=== PATIENT | male | born 1975 | race Caucasian/White ===

== ENCOUNTER 2017-08-16 17:15 | Emergency (ER) | payer OTHER ==
[~2017-08-16] VITALS: Ht 180.3 cm; Wt 95.2 kg
[~2017-08-16 17:15] MED LIST: AMOCLA875 PO; AMOX500 PO; BACL10 PO; CEPH500 PO; CLIN150 PO; CYCL10 PO; DIAZ5 PO; FAMO20 PO; Flexi Joint Ta1 EAC1 PO; GABA100 PO; GABA300 PO; HYDACE5 PO; HYDACE5325 PO; IBUP600 PO; IBUP800 PO; KETO10 PO; LEVO750 PO; MELO7.5 PO; META800 PO; Mobic7.5 MG PO; NAPR500 PO; NAPR550 PO; Norco 10-325 T1 EACH PO; Norco 5-325 Ta1 EACH PO; OXYACE5T PO; PENVK500 PO; PROM25; PROM25 PO; Pepcid40 MG PO; Percocet 5-3251 EACH PO; Prednisone20 MG PO; SUCR1 PO; SULTRIDS; SULTRIDS PO; Ultram50 MG PO; VICODIN 5-3001 EACH PO; Zofran8 MG PO
[2017-08-16] MEDS ORDERED: MELO7.5 PO (17:31)
[2017-08-16] MEDS ORDERED: GABA300 PO (17:31)
[2017-08-16 18:06] LABS: Source, Urine Clean Catch
[2017-08-16 18:23] LABS: Appearance, Urine Cloudy (Clear); Bilirubin, Urine Neg (Neg); Blood, Urine 5+ (Neg); Color, Urine Amber (P-Yellow); Glucose Qualitative, Urine Neg (Neg); Ketones, Urine 1+ (Neg); Leukocyte Esterase, Urine 1+ (Neg); Nitrite, Urine Neg (Neg); Protein, Urine 2+ (Neg); Specific Gravity, Urine 1.015 (1.003-1.022); Urobilinogen, Urine 1+ (Normal)
[2017-08-16 19:04] LABS: Red Blood Cells, Urine TNTC /hpf (0-2); Squamous Epithelial Cells Not Seen /hpf (Few)
[2017-08-16 19:05] LABS: Bacteria Few /hpf
[2017-08-16 19:56] LABS: BASOPHILS ABSOLUTE AUTO 0.03 K/mm3 (0.00-0.23); BASOPHILS PERCENT AUTO 0 % (0-2); EOSINOPHILS ABSOLUTE AUTO 0.36 K/mm3 (0.00-0.68); EOSINOPHILS PERCENT AUTO 4 % (0-6); Hematocrit 42.5 % (37.0-53.0); Hemoglobin 14.2 g/dL (13.5-17.5); IMMATURE GRAN ABSOLUTE AUTO 0.02 K/mm3 (0.00-0.10); IMMATURE GRAN PERCENT AUTO 0 % (0-1); LYMPHOCYTES ABSOLUTE AUTO 2.95 K/mm3 (0.84-5.20); LYMPHOCYTES PERCENT AUTO 31 % (21-46); MONOCYTES ABSOLUTE AUTO 0.92 K/mm3 (0.16-1.47); MONOCYTES PERCENT AUTO 10 % (4-13); Mean Corpuscular HGB 30.8 pg (26.0-34.0); Mean Corpuscular HGB Conc 33.4 g/dL (31.5-36.5); Mean Corpuscular Volume 92 fL (80-100); Mean Platelet Volume 9.5 fL (9.1-12.4); NEUTROPHILS ABSOLUTE AUTO 5.29 K/mm3 (1.96-9.15); NEUTROPHILS PERCENT AUTO 55 % (41-73); Platelet Count 222 K/mm3 (150-400); RDW Coefficient Variation 13.3 % (11.7-14.2); RDW Standard Deviation 45.3 fL (35.1-46.3); Red Blood Cell Count 4.61 M/mm3 (4.30-5.90); White Blood Cell Count 9.57 K/mm3 (4.00-11.30)
[2017-08-16 20:32] LABS: Alanine Aminotransfer (ALT/SGP 55 U/L (12-78); Albumin, Blood 3.9 g/dL (3.4-5.0); Albumin/Globulin Ratio 1.1 (0.8-1.8); Alk Phos 102 U/L (50-136); Anion Gap 6 mmol/L (6-16); Aspartate Aminotrans (AST/SGOT 52 U/L (12-37); Bilirubin, Total 0.7 mg/dL (0.1-1.0); Blood Urea Nitrogen 12 mg/dL (8-24); Bun/Creatinine Ratio 15.6 (12.0-20.0); CO2, Blood 27 mmol/L (21-32); Calcium, Blood 8.7 mg/dL (8.5-10.1); Chloride, Blood 105 mmol/L (98-108); Creatinine, Blood 0.77 mg/dL (0.60-1.20); Globulin, Blood 3.7 g/dL (2.2-4.0); Glomerular Filtration Rate >60 (60-); Glucose, Blood 90 mg/dL (70-99); Potassium, Blood 4.1 mmol/L (3.5-5.5); Sodium, Blood 138 mmol/L (136-145); Total Protein, Blood 7.6 g/dL (6.4-8.2)
[2017-08-16] MEDS ORDERED: Flomax0.4 MG PO (21:14)
[2017-08-16] MEDS ORDERED: Norco 5-325 Ta1 EACH PO (21:14)
[2017-08-16] MEDS ORDERED: IBUP600 PO (21:14)
[2018-05-11] MEDS ORDERED: CYCL10 PO (13:16)
== END 2017-08-16 21:36 | disposition home or self-care (01) ==
LOC: ER 17:15
PROVIDERS: Emergency Medicine
DX: N20.1 Calculus of ureter (principal); Z88.8 Allergy status to other drugs, medicaments and biological substances; E11.9 Type 2 diabetes mellitus without complications; F17.210 Nicotine dependence, cigarettes, uncomplicated
CPT/HCPCS: 36415; 74176; 76870; 80053; 81001; 85025; 87086; 96361; 96374; 96375; 99284; J1885; J2405; J7030

== ENCOUNTER 2018-02-23 09:25 | Day surgery (SDC) | payer OTHER ==
[~2018-02-23] VITALS: Ht 180.3 cm; Wt 101.0 kg
[~2018-02-23 09:25] MED LIST changes: +Flomax0.4 MG PO
[2018-02-23] MEDS ORDERED: ALBU90OI INH (10:15)
[2018-02-23] MEDS ORDERED: Advair Hfa 230-12 GM (10:15)
[2018-02-23] MEDS ORDERED: GABA300 PO (10:15)
[2018-02-23] MEDS ORDERED: PROM12.5S PR (10:16)
== END 2018-02-23 11:12 | disposition home or self-care (01) ==
LOC: ORSCSDS 09:25
PROVIDERS: Internal Medicine Gastroenterology
PROC: 0DJ08ZZ Inspection of Upper Intestinal Tract, Via Natural or Artificial Opening Endoscopic (ICD-10-PCS; principal; 2018-02-23 11:15)
DX: K21.0 Gastro-esophageal reflux disease with esophagitis (principal); K44.9 Diaphragmatic hernia without obstruction or gangrene; R11.2 Nausea with vomiting, unspecified; B19.20 Unspecified viral hepatitis C without hepatic coma; I10 Essential (primary) hypertension; F41.9 Anxiety disorder, unspecified; F17.210 Nicotine dependence, cigarettes, uncomplicated; Z79.899 Other long term (current) drug therapy
CPT/HCPCS: J7120

== ENCOUNTER 2018-07-27 14:33 | Observation (INO) | payer OTHER ==
[~2018-07-27] VITALS: Ht 180.3 cm; Wt 106.1 kg
[~2018-07-27 14:33] MED LIST changes: +ALBU90OI INH; +Advair Hfa 230-12 GM; +PROM12.5S PR
[2018-07-27 15:10] LABS: BASOPHILS ABSOLUTE AUTO 0.04 K/mm3 (0.00-0.23); BASOPHILS PERCENT AUTO 0 % (0-2); EOSINOPHILS ABSOLUTE AUTO 0.17 K/mm3 (0.00-0.68); EOSINOPHILS PERCENT AUTO 2 % (0-6); Hematocrit 47.6 % (37.0-53.0); Hemoglobin 16.2 g/dL (13.5-17.5); IMMATURE GRAN ABSOLUTE AUTO 0.03 K/mm3 (0.00-0.10); IMMATURE GRAN PERCENT AUTO 0 % (0-1); LYMPHOCYTES ABSOLUTE AUTO 3.19 K/mm3 (0.84-5.20); LYMPHOCYTES PERCENT AUTO 28 % (21-46); MONOCYTES ABSOLUTE AUTO 1.15 K/mm3 (0.16-1.47); MONOCYTES PERCENT AUTO 10 % (4-13); Mean Corpuscular HGB 29.9 pg (26.0-34.0); Mean Corpuscular Volume 88 fL (80-100); Mean Platelet Volume 10.2 fL (9.1-12.4); NEUTROPHILS ABSOLUTE AUTO 6.91 K/mm3 (1.96-9.15); NEUTROPHILS PERCENT AUTO 60 % (41-73); Platelet Count 254 K/mm3 (150-400); RDW Coefficient Variation 12.8 % (11.7-14.2); RDW Standard Deviation 41.2 fL (35.1-46.3); Red Blood Cell Count 5.41 M/mm3 (4.30-5.90); White Blood Cell Count 11.49 K/mm3 (4.00-11.30)
[2018-07-27] MEDS ORDERED: PROM25 PO (15:18)
[2018-07-27 15:33] LABS: Alanine Aminotransfer (ALT/SGP 185 U/L (12-78); Albumin, Blood 4.2 g/dL (3.4-5.0); Alk Phos 123 U/L (50-136); Anion Gap 8 mmol/L (6-16); Aspartate Aminotrans (AST/SGOT 72 U/L (12-37); Bilirubin, Total 0.4 mg/dL (0.1-1.0); Blood Urea Nitrogen 13 mg/dL (8-24); Bun/Creatinine Ratio 14.1 (12.0-20.0); CO2, Blood 27 mmol/L (21-32); Calcium, Blood 8.6 mg/dL (8.5-10.1); Chloride, Blood 103 mmol/L (98-108); Creatinine, Blood 0.92 mg/dL (0.60-1.20); Glomerular Filtration Rate >60 (60-); Glucose, Blood 89 mg/dL (70-99); Potassium, Blood 3.9 mmol/L (3.5-5.5); Sodium, Blood 138 mmol/L (136-145); Total Protein, Blood 8.2 g/dL (6.4-8.2); Troponin I <0.015 ng/mL (0.000-0.040)
--- NOTE | 2018-07-28 06:44 | NUR ---
VSS, AFEBRILE, A/O, INDEPENDENT, 20G R AC. PMHX: NON-COMPLIANCE, SMOKER, HTN, DM II. TELE: STACH, NEG TROPS, NEG EKG, ELEVATED LIVER ENZYMES, NEG PE STUDY. C/O BILAT SHOULDER PAIN, PREVIOUS METH/NARCOTIC ABUSE
[2018-07-28] MEDS ORDERED: ACET325 PO (15:11)
[2018-07-28] MEDS ORDERED: ALUM-MAG HYDRO360 ML PO (15:13)
[2018-07-28] MEDS ORDERED: ASPI81CH PO (15:14)
[2018-07-28] MEDS ORDERED: AMLO5 PO (15:14)
[2018-07-28] MEDS ORDERED: KETO10 PO (15:14)
[2018-07-28] MEDS ORDERED: Nicoderm Cq1 EAC1 TD (15:15)
[2018-07-28] MEDS ORDERED: OMEPRAZOLE MAGN20 MG PO (15:16)
[2018-07-28] MEDS ORDERED: ONDA4ODT MM (15:18)
--- NOTE | 2018-07-28 16:26 | NUR ---
PT DISCHARGED THE PT VERBALIZED UNDERSTANDING OF THE DC INSTRUCTIONS, PPERSCRIPTIONS FAXED TO [facility] REQUESTED, THE PT DECLINED WHEELCHAIR, THE PT WAS STEADY ON HIS FEET ACCOMPANIED BY A FRIEND, PT WAS A/OX3
== END 2018-07-28 15:28 | disposition home or self-care (01) ==
LOC: ER 14:33 → MEDS 14:34 → ENPENDDIS 07-28 14:02 → MEDS 07-28 15:28
PROVIDERS: Emergency Medicine; ADMIT Family Medicine
DX: R07.9 Chest pain, unspecified (principal); I16.0 Hypertensive urgency; K21.0 Gastro-esophageal reflux disease with esophagitis; M19.012 Primary osteoarthritis, left shoulder; M19.011 Primary osteoarthritis, right shoulder; E78.5 Hyperlipidemia, unspecified; E66.9 Obesity, unspecified; J44.9 Chronic obstructive pulmonary disease, unspecified; R74.0 Nonspecific elevation of levels of transaminase and lactic acid dehydrogenase [LDH]; I10 Essential (primary) hypertension; E11.40 Type 2 diabetes mellitus with diabetic neuropathy, unspecified; M19.90 Unspecified osteoarthritis, unspecified site; F17.210 Nicotine dependence, cigarettes, uncomplicated; Z79.899 Other long term (current) drug therapy; Z68.32 Body mass index [BMI] 32.0-32.9, adult
CPT/HCPCS: 36415; 71046; 71260; 80053; 83880; 84484; 85025; 85379; 90686; 93005; 93010; 93306; 94640; 94760; 96360; 96361; 96374; 99285-25; G0008; G0378; J1650; J1885; Q9967

== ENCOUNTER 2018-11-27 09:47 | Day surgery (SDC) | payer OTHER ==
[~2018-11-27] VITALS: Ht 180.3 cm; Wt 113.2 kg
[~2018-11-27 09:47] MED LIST changes: +ACET325 PO; +ALBU2.5V5 NEB; +ALUM-MAG HYDRO360 ML PO; +AMLO5 PO; +ASPI81CH PO; +BUPR150T2 PO; +FLUT1DIS5 INH; +GABA600 PO; +IBUP400 PO; +METAMUCIL POWD174 GM PO; +Nicoderm Cq1 EAC1 TD; +OMEPRAZOLE MAGN20 MG PO; +ONDA4ODT MM; +SACC250C PO; +Toprol Xl50 MG PO; +Toradol10 MG PO; +VARE1 PO; +Zantac150 MG PO
--- NOTE | 2018-11-27 14:52 | NUR ---
11/27/18 1452 Cassandra Farley PT STATED PAIN WAS TOLERABLE AND MELA PO SNACKS AND FLUIDS WELL TO CAR VIA W/C AND SBAX1 MELA WELL. PT AND HIS KRISTAL WERE SHOWN HOW TO REMOVE AND REPLACE SLING AND HOW TO USE POLAR PK AND I.S.
== END 2018-11-27 14:38 | disposition home or self-care (01) ==
LOC: ORSCSDS 09:47
PROVIDERS: Orthopaedic Surgery
PROC: 0PB94ZZ Excision of Right Clavicle, Percutaneous Endoscopic Approach (ICD-10-PCS; principal; 2018-11-27 11:15)
PROC: 0LS14ZZ Reposition Right Shoulder Tendon, Percutaneous Endoscopic Approach (ICD-10-PCS; principal; 2018-11-27 11:15)
PROC: 0LQ14ZZ Repair Right Shoulder Tendon, Percutaneous Endoscopic Approach (ICD-10-PCS; principal; 2018-11-27 11:15)
PROC: 0RNJ4ZZ Release Right Shoulder Joint, Percutaneous Endoscopic Approach (ICD-10-PCS; principal; 2018-11-27 11:15)
DX: M75.111 Incomplete rotator cuff tear or rupture of right shoulder, not specified as traumatic (principal); M75.21 Bicipital tendinitis, right shoulder; M19.011 Primary osteoarthritis, right shoulder; I25.10 Atherosclerotic heart disease of native coronary artery without angina pectoris; B19.20 Unspecified viral hepatitis C without hepatic coma; K21.9 Gastro-esophageal reflux disease without esophagitis; Z87.891 Personal history of nicotine dependence; Z79.899 Other long term (current) drug therapy; E66.9 Obesity, unspecified; Z68.34 Body mass index [BMI] 34.0-34.9, adult
CPT/HCPCS: A9270-GY; C1713; J0171; J0690; J1100; J1885; J2250; J2405; J2704; J2765; J2795; J3010; J7120

== ENCOUNTER 2019-11-19 10:11 | Day surgery (SDC) | payer OTHER ==
[~2019-11-19] VITALS: Ht 180.3 cm; Wt 107.9 kg
[2019-11-19] MEDS ORDERED: LOSA50 PO (11:00)
--- NOTE | 2019-11-19 12:24 | NUR ---
11/19/19 1224 Lois Lord 1 MG EPI ADDED TO EACH OF THE FIRST 3 BAGS OF LR.
--- NOTE | 2019-11-19 13:27 | NUR ---
11/19/19 1327 Jen Arenas V PT RESTING IN RECLINER, PILLOW UNDER OPERATIVE LIMB, WARM BLANKETS GIVEN FOR COMFORT, PT TOLERATING PO NURISHMENTS. PT DENIED PAIN UPPON ARRIVING TO SDU BUT NOW REPORTS PAIN 7/10 AND STATES HE "WOULD LIKE SOME IV PAIN MEDS BEFORE HE LEAVES". VSS. REPORT GIVEN TO [facility].EXM.
== END 2019-11-19 14:45 | disposition home or self-care (01) ==
LOC: ORSCSDS 10:11
PROVIDERS: Orthopaedic Surgery
PROC: 0PBB4ZZ Excision of Left Clavicle, Percutaneous Endoscopic Approach (ICD-10-PCS; principal; 2019-11-19 11:30)
PROC: 0LU24KZ Supplement Left Shoulder Tendon with Nonautologous Tissue Substitute, Percutaneous Endoscopic Approach (ICD-10-PCS; principal; 2019-11-19 11:30)
PROC: 0RNK4ZZ Release Left Shoulder Joint, Percutaneous Endoscopic Approach (ICD-10-PCS; principal; 2019-11-19 11:30)
PROC: 0LQ24ZZ Repair Left Shoulder Tendon, Percutaneous Endoscopic Approach (ICD-10-PCS; principal; 2019-11-19 11:30)
PROC: 0LS24ZZ Reposition Left Shoulder Tendon, Percutaneous Endoscopic Approach (ICD-10-PCS; principal; 2019-11-19 11:30)
DX: M75.112 Incomplete rotator cuff tear or rupture of left shoulder, not specified as traumatic (principal); M75.22 Bicipital tendinitis, left shoulder; M19.012 Primary osteoarthritis, left shoulder; M75.42 Impingement syndrome of left shoulder; I10 Essential (primary) hypertension; J44.9 Chronic obstructive pulmonary disease, unspecified; G47.33 Obstructive sleep apnea (adult) (pediatric); B19.20 Unspecified viral hepatitis C without hepatic coma; E11.9 Type 2 diabetes mellitus without complications; Z87.891 Personal history of nicotine dependence; Z79.899 Other long term (current) drug therapy; Z79.82 Long term (current) use of aspirin
CPT/HCPCS: 82947; A9270-GY; C1713; J0171; J0690; J1100; J1885; J2250; J2405; J2704; J2765; J3010; J7120

== ENCOUNTER 2020-01-08 11:04 | Emergency (ER) | payer OTHER ==
[~2020-01-08] VITALS: Ht 180.3 cm; Wt 108.9 kg
[~2020-01-08 11:04] MED LIST changes: +LOSA50 PO; +Robaxin-750750 MG PO
== END 2020-01-08 12:01 | disposition home or self-care (01) ==
LOC: ER 11:04
DX: M54.41 Lumbago with sciatica, right side (principal); E11.9 Type 2 diabetes mellitus without complications; Z86.19 Personal history of other infectious and parasitic diseases; Z79.899 Other long term (current) drug therapy; Z87.891 Personal history of nicotine dependence; Z79.52 Long term (current) use of systemic steroids
CPT/HCPCS: 96372; 99283-25; J1170

== ENCOUNTER 2020-04-28 12:01 | Emergency (ER) | payer OTHER ==
[~2020-04-28] VITALS: Ht 180.3 cm; Wt 111.1 kg
[2020-04-28] MEDS ORDERED: GABA800 PO (12:12)
[2020-04-28] MEDS ORDERED: AMLO10 PO (12:12)
[2020-04-28] MEDS ORDERED: METO100ER PO (12:13)
[2020-04-28] MEDS ORDERED: SUCRALFATE PO (12:14)
[2020-04-28] MEDS ORDERED: METAMUCIL POWD575 GM PO (12:15)
[2020-04-28 13:02] LABS: BASOPHILS ABSOLUTE AUTO 0.07 K/mm3 (0.00-0.23); BASOPHILS PERCENT AUTO 1 % (0-2); EOSINOPHILS ABSOLUTE AUTO 0.22 K/mm3 (0.00-0.68); EOSINOPHILS PERCENT AUTO 2 % (0-6); Hematocrit 48.2 % (37.0-53.0); Hemoglobin 16.3 g/dL (13.5-17.5); IMMATURE GRAN ABSOLUTE AUTO 0.04 K/mm3 (0.00-0.10); IMMATURE GRAN PERCENT AUTO 0 % (0-1); LYMPHOCYTES ABSOLUTE AUTO 3.46 K/mm3 (0.84-5.20); LYMPHOCYTES PERCENT AUTO 30 % (21-46); MONOCYTES ABSOLUTE AUTO 0.99 K/mm3 (0.16-1.47); MONOCYTES PERCENT AUTO 9 % (4-13); Mean Corpuscular HGB 30.5 pg (26.0-34.0); Mean Corpuscular HGB Conc 33.8 g/dL (31.5-36.5); Mean Corpuscular Volume 90 fL (80-100); Mean Platelet Volume 9.6 fL (9.1-12.4); NEUTROPHILS PERCENT AUTO 58 % (41-73); Platelet Count 270 K/mm3 (150-400); RDW Coefficient Variation 13.1 % (11.7-14.2); RDW Standard Deviation 42.5 fL (35.1-46.3); Red Blood Cell Count 5.35 M/mm3 (4.30-5.90); White Blood Cell Count 11.38 K/mm3 (4.00-11.30)
[2020-04-28 13:26] LABS: Alanine Aminotransfer (ALT/SGP 156 U/L (12-78); Alk Phos 133 U/L (50-136); Anion Gap 6 mmol/L (6-16); Aspartate Aminotrans (AST/SGOT 58 U/L (12-37); Bilirubin, Total 0.5 mg/dL (0.1-1.0); Blood Urea Nitrogen 14 mg/dL (8-24); Bun/Creatinine Ratio 17.1 (12.0-20.0); CO2, Blood 28 mmol/L (21-32); Chloride, Blood 104 mmol/L (98-108); Creatinine, Blood 0.82 mg/dL (0.60-1.20); Globulin, Blood 4.1 g/dL (2.2-4.0); Glomerular Filtration Rate >60 (60-); Glucose, Blood 101 mg/dL (70-99); Potassium, Blood 4.3 mmol/L (3.5-5.5); Sodium, Blood 138 mmol/L (136-145); Total Protein, Blood 8.1 g/dL (6.4-8.2); Troponin I <0.015 ng/mL (0.000-0.040)
[2020-04-28] MEDS ORDERED: PEPCID40 MG PO (14:55)
[2020-04-28] MEDS ORDERED: ACETAMINOPHEN500 MG PO (14:55)
== END 2020-04-28 15:32 | disposition home or self-care (01) ==
LOC: ER 12:01
PROVIDERS: Emergency Medicine
DX: M79.18 Myalgia, other site (principal); R07.9 Chest pain, unspecified; R74.01 Elevation of levels of liver transaminase levels; Z79.899 Other long term (current) drug therapy
CPT/HCPCS: 36415; 71045; 73060; 80053; 83690; 83880; 84484; 85025; 93005; 93010; 99284-25; J1170; J2405; J7030

== ENCOUNTER 2020-07-03 06:01 | Day surgery (SDC) | payer OTHER ==
[~2020-07-03] VITALS: Ht 182 cm; Wt 110.5 kg
[~2020-07-03 06:01] MED LIST changes: +ACETAMINOPHEN500 MG PO; +AMLO10 PO; +GABA800 PO; +METAMUCIL POWD575 GM PO; +METO100ER PO; +PEPCID40 MG PO; +SUCRALFATE PO
--- NOTE | 2020-07-03 07:12 | NUR ---
Ambulatory in Day Surgery History, Chart, Medications and Allergies reviewed before start of procedure.Patient confirms NPO status and agrees with scheduled surgery. Patient reports completing Chlorhexadine shower X2 prior to admission to hospital.Surgical site prepped with 2% Chlorhexidine cloth wipe.
--- NOTE | 2020-07-03 12:28 | NUR ---
Patient up to Ambulate independently. Gait steady. Discharge instructions reviewed with patient. Patient verbalizes understanding. Copy given to patient to take home. Discharged via wheelchair to private car for ride home.PATIENT REPORTS GOOD RELIEF FROM PAIN AFTER BLOCK PLACED WITH DR. GARCIA. AWARE ARM WILL BE USELESS UNTIL BLOCK WEARS OFF. IN BRACE. DENIES QUESTIONS OR CONCERNS
== END 2020-07-03 23:25 | disposition home or self-care (01) ==
LOC: ORSCMMR 06:01 → ORD 07:30 → ORSCMMR 07:30
PROVIDERS: Orthopaedic Surgery
PROC: 0LM30ZZ Reattachment of Right Upper Arm Tendon, Open Approach (ICD-10-PCS; principal; 2020-07-03 07:30)
DX: S46.211A Strain of muscle, fascia and tendon of other parts of biceps, right arm, initial encounter (principal); I10 Essential (primary) hypertension; J44.9 Chronic obstructive pulmonary disease, unspecified; G47.33 Obstructive sleep apnea (adult) (pediatric); K21.9 Gastro-esophageal reflux disease without esophagitis; F17.210 Nicotine dependence, cigarettes, uncomplicated; Z79.899 Other long term (current) drug therapy
CPT/HCPCS: 73070; A9270; C1713; J0171; J0330; J0690; J1885; J2250; J2370; J2405; J2704; J3010; J7120

== ENCOUNTER → 2022-01-31 | Outpatient (CLI) | payer OTHER ==
[2022-02-02 13:19] LABS: Adenovirus F 40/41 Not Detected (NOT DETECT); Astrovirus Not Detected (NOT DETECT); Campylobacter Sp Not Detected (NOT DETECT); Cryptosporidium Not Detected (NOT DETECT); Cyclospora Cayetanensis Not Detected (NOT DETECT); E. Coli O157 Not Detected (NOT DETECT); Entamoeba Histolytica Not Detected (NOT DETECT); Enteroaggregative E. coli-EAEC Not Detected (NOT DETECT); Enteropathogenic E. coli-EPEC Not Detected (NOT DETECT); Enterotoxigenic E. coli-ETEC Not Detected (NOT DETECT); Giardia Lamblia Not Detected (NOT DETECT); Norovirus GI/GII Not Detected (NOT DETECT); Plesiomonas Shigelloides Not Detected (NOT DETECT); Rotavirus A Not Detected (NOT DETECT); Salmonella Sp Not Detected (NOT DETECT); Sapovirus Not Detected (NOT DETECT); Shiga Toxin-prod E. coli-STEC Not Detected (NOT DETECT); Shigella/Enteroin E. coli-EIEC Not Detected (NOT DETECT); Vibrio Cholerae Not Detected (NOT DETECT); Vibrio Sp Not Detected (NOT DETECT); Yersinia Enterocolitica Not Detected (NOT DETECT)
== END | disposition home or self-care (01) ==
LOC: LAB SHORT 20:00 → LAB 20:00
PROVIDERS: Physician Assistant Medical
DX: K21.9 Gastro-esophageal reflux disease without esophagitis (principal)
CPT/HCPCS: 87507